=== PATIENT | male | born 1950 | race African-American/Black ===

== ENCOUNTER 2017-08-02 16:51 | Inpatient (IN) | payer OTHER ==
[~2017-08-02] VITALS: Ht 182.9 cm; Wt 130.9 kg
[2017-08-02 16:51] VITALS: BP 137/70
[~2017-08-02 16:51] MED LIST: AMBIEN 5 MG TABL5 M1 PO; CALCITRIOL0.5 MCG PO; CLOBETASOL PROP50 G1 TP; CLONIDINE HCL0.2 M2 PO; GLIPIZIDE ER10 MG PO; KLOR-CON 1010 MEQ PO; LIPITOR40 MG PO; METOLAZONE 5 MG5 M1 PO; TAMSULOSIN HCL0.4 M1 PO; UREA TP; ZETIA10 MG PO
[2017-08-02 17:43] LABS: HEMATOCRIT 28.8 % (42.0-52.0); HEMOGLOBIN 8.8 gm/dL (14.0-18.0); MCH 26.5 pg (26.0-34.0); MCHC 30.6 g/dL (28.0-37.0); MCV 86.8 fL (80.0-100.0); PLATELET COUNT 251 thou/uL (150-400); RBC 3.31 mil/uL (4.50-6.00); RDW 19.4 % (10.5-14.5); WBC 10.1 thou/uL (4.0-11.0)
[2017-08-02 17:44] LABS: MANUAL DIFF YES
[2017-08-02 18:46] LABS: ABSOLUTE NEUTROPHILS 9.1 thou/uL (1.4-8.2); TOTAL CELL COUNT 100
[2017-08-02 18:47] LABS: ANISOCYTOSIS 2+; OVALOCYTES 1+
[2017-08-02 18:48] LABS: POLYCHROMASIA OCCASIONAL
[2017-08-02 18:54] LABS: URINE BILIRUBIN NEGATIVE (Negative); URINE BLOOD NEGATIVE (Negative); URINE COLOR YELLOW; URINE GLUCOSE-RANDOM* NEGATIVE (Negative); URINE KETONES NEGATIVE (Negative); URINE PROTEIN (DIPSTICK) TRACE (Negative); URINE UROBILINOGEN 0.2 E.U./dl (0.2-1.0)
[2017-08-02 18:58] LABS: URINE LEUKOCYTES-REFLEX TRACE (Negative)
[2017-08-02 19:03] LABS: CASTS None Seen /LPF (None Seen); CRYSTALS None Seen /LPF (None Seen); SQUAMOUS 0-3 Few /LPF (0-3)
[2017-08-02 19:04] LABS: URINE RBC None Seen /HPF (0-2); URINE WBC-REFLEX 0-5 Rare /HPF (0-5)
[2017-08-02] MEDS ORDERED: SENNA PO (19:44)
[2017-08-02] MEDS ORDERED: LOPERAMIDE 2 MG2 M1 PO (19:48)
[2017-08-02] MEDS ORDERED: CALMOSEPTINE O3.5 GM (19:49)
[2017-08-02] MEDS ORDERED: NORCO 10-325 T1 EACH PO (19:49)
[2017-08-02] MEDS ORDERED: VITAMINC500 PO (19:50)
[2017-08-02] MEDS ORDERED: ASPIR 8181 M1 PO (19:50)
[2017-08-02 20:51] LABS: ALBUMIN 2.8 g/dL (3.4-5.0); DIRECT BILIRUBIN 0.1 mg/dL (<0.1-0.3); TOTAL BILIRUBIN 0.4 mg/dL (<0.1-1.0); TOTAL PROTEIN 7.4 g/dL (6.4-8.2)
[2017-08-02 20:54] LABS: CALCIUM 8.6 mg/dL (8.5-10.1); CREATININE 1.8 mg/dL (0.7-1.3); POTASSIUM 3.6 mmol/L (3.5-5.1)
[2017-08-02 20:55] VITALS: BP 136/60
[2017-08-02 21:57] VITALS: BP 114/61
[2017-08-02] MEDS ORDERED: POTASSIUM20 PO (23:59)
[2017-08-03] MEDS ORDERED: CYMBALTA60 MG PO (00:02)
[2017-08-03] MEDS ORDERED: LASIX 40 MG TAB40 M2 PO (00:03)
[2017-08-03] MEDS ORDERED: GABAPENTIN 100100 MG PO (00:05)
[2017-08-03] MEDS ORDERED: HYDRALAZINE 5050 MG PO (00:06)
[2017-08-03] MEDS ORDERED: CLARITIN10 M2 PO (00:08)
[2017-08-03] MEDS ORDERED: LOVASTAT40 PO (00:09)
[2017-08-03] MEDS ORDERED: METFORMIN HCL500 MG PO (00:11)
[2017-08-03] MEDS ORDERED: LOPRESSOR50 PO (00:13)
[2017-08-03] MEDS ORDERED: ZANTAC 150MG T150 MG PO (00:15)
[2017-08-03] MEDS ORDERED: LEVSIN0.125 MG PO (00:16)
[2017-08-03] MEDS ORDERED: AMBIEN 5 MG TABL5 M1 PO (00:17)
[2017-08-03] MEDS ORDERED: LANTUS100 UNIT/M SUBQ (00:18)
[2017-08-03] MEDS ORDERED: IRON325 PO (00:19)
[2017-08-03] MEDS ORDERED: AQUAPHOR OINTM396 GM TOP (00:21)
[2017-08-03] MEDS ORDERED: PAXIL10 MG TOP (00:24)
[2017-08-03] MEDS ORDERED: AQUAPHOR HEALIN50 GM TOP (01:27)
[2017-08-03 04:21] VITALS: BP 162/70
[2017-08-03 07:42] VITALS: BP 158/75
[2017-08-03 11:29] VITALS: BP 118/55
[2017-08-03 16:18] VITALS: BP 128/59
[2017-08-03 19:34] VITALS: BP 134/63
[2017-08-04 04:00] VITALS: BP 149/94
[2017-08-04 05:42] LABS: HEMOGLOBIN 7.9 gm/dL (14.0-18.0); MCH 26.3 pg (26.0-34.0); MCHC 31.5 g/dL (28.0-37.0); MCV 83.7 fL (80.0-100.0); PLATELET COUNT 195 thou/uL (150-400); RBC 2.99 mil/uL (4.50-6.00); RDW 18.8 % (10.5-14.5); WBC 13.6 thou/uL (4.0-11.0)
[2017-08-04 05:52] LABS: MANUAL DIFF YES
[2017-08-04 08:50] VITALS: BP 163/75
[2017-08-04 08:51] LABS: ABSOLUTE NEUTROPHILS 11.8 thou/uL (1.4-8.2); ANISOCYTOSIS 2+; OVALOCYTES 2+; TOTAL CELL COUNT 100
[2017-08-04 13:45] VITALS: BP 157/63
[2017-08-04 14:09] LABS: KAPPA FREE LIGHT CHAINS 32.5 mg/L (3.3-19.4); KAPPA/LAMBDA RATIO 0.1 (0.26-1.65)
[2017-08-04 17:10] VITALS: BP 142/58
[2017-08-04 19:05] VITALS: BP 133/45
[2017-08-05 04:15] VITALS: BP 121/61
[2017-08-05 08:08] VITALS: BP 148/69
[2017-08-05] MEDS ORDERED: HYDROCODON-ACE1 EAC7 PO (10:16)
[2017-08-05] MEDS ORDERED: CEFUROXIME500 MG PO (10:20)
[2017-08-05 11:25] VITALS: BP 115/53
[2017-08-05 15:08] LABS: A/G RATIO 0.8 (0.7-1.7); ALBUMIN 2.8 g/dL (2.9-4.4); ALPHA 1 0.3 g/dL (0.0-0.4); ALPHA 2 0.8 g/dL (0.4-1.0); BETA 0.8 g/dL (0.7-1.3); GAMMA 1.7 g/dL (0.4-1.8); M-SPIKE 0.9 g/dL (Not Observed)
[2017-08-05 16:09] LABS: IgA 64 mg/dL (61-437); IgG 1830 mg/dL (700-1600)
[2017-08-05 20:08] LABS: IgM 15 mg/dL (20-172)
[2017-08-05 22:07] LABS: HIV ANTIBODY Non Reactive (Non Reactive)
== END 2017-08-05 17:10 | DRG 871 ==
LOC: ER 16:51 → 4W 19:50 → EROBS 19:50 → 4W 21:18
PROVIDERS: Emergency Medicine; Hospitalist; Internal Medicine Hematology & Oncology
DX: A40.8 Other streptococcal sepsis (principal); G93.40 Encephalopathy, unspecified; J18.9 Pneumonia, unspecified organism; N39.0 Urinary tract infection, site not specified; C90.00 Multiple myeloma not having achieved remission; C46.9 Kaposi's sarcoma, unspecified; E78.5 Hyperlipidemia, unspecified; H35.30 Unspecified macular degeneration; M10.9 Gout, unspecified; Z66 Do not resuscitate; N18.3 Chronic kidney disease, stage 3 (moderate); E11.22 Type 2 diabetes mellitus with diabetic chronic kidney disease; I12.9 Hypertensive chronic kidney disease with stage 1 through stage 4 chronic kidney disease, or unspecified chronic kidney disease; K21.9 Gastro-esophageal reflux disease without esophagitis; D64.9 Anemia, unspecified; I89.0 Lymphedema, not elsewhere classified; F32.9 Major depressive disorder, single episode, unspecified; N40.0 Benign prostatic hyperplasia without lower urinary tract symptoms; N13.9 Obstructive and reflux uropathy, unspecified; Z85.46 Personal history of malignant neoplasm of prostate; Z90.49 Acquired absence of other specified parts of digestive tract; Z88.8 Allergy status to other drugs, medicaments and biological substances
CPT/HCPCS: 10045

== ENCOUNTER 2017-08-08 13:03 | Emergency (ER) | payer OTHER ==
[~2017-08-08] VITALS: Ht 180.3 cm; Wt 136.1 kg
--- NOTE | ~2017-08-08 | EKG ---
[address] [address] ELECTROCARDIOGRAM REPORT Name: MERCEDEZ URBINA Room #: DEP [facility] [id number] Admission: 08/08/17 Attend Phys: Discharge: 08/08/17 Date of : 48 Report #: [id number] THIS REPORT FOR: //name// [facility] ED Test Date: 2017-08-08 Test Time: 16:58:34 Pat Name: MERCEDEZ URBINA Department: Room: Gender: Online Marketing Specialist: JOE : 1950 Requested By: Demi Degroot Order Number: [id number] MD: Trung Ballard Measurements Intervals [place] Rate: 83 P: 52 TN: 145 QRS: 72 QRSD: 92 T: 57 QT: 369 QTc: 434 Interpretive Statements Sinus arrhythmia No significant abnormality Compared to ECG 06/13/2013 11:12:35 No significant change was found Electronically Signed On 08-09-2017 8:18:43 CDT by Trung Ballard [email or web address] <ELECTRONICALLY SIGNED> By: Trung Ballard MD, [facility] 08/09/17 0818 1658 1658 Trung Ballard MD, FACC /EPI
[~2017-08-08 13:03] MED LIST changes: +AQUAPHOR HEALIN50 GM TOP; +AQUAPHOR OINTM396 GM TOP; +ASPIR 8181 M1 PO; +CALMOSEPTINE O3.5 GM; +CEFUROXIME500 MG PO; +CLARITIN10 M2 PO; +CYMBALTA60 MG PO; +GABAPENTIN 100100 MG PO; +HYDRALAZINE 5050 MG PO; +HYDROCODON-ACE1 EAC7 PO; +IRON325 PO; +LANTUS100 UNIT/M SUBQ; +LASIX 40 MG TAB40 M2 PO; +LEVSIN0.125 MG PO; +LOPERAMIDE 2 MG2 M1 PO; +LOPRESSOR50 PO; +LOVASTAT40 PO; +METFORMIN HCL500 MG PO; +NORCO 10-325 T1 EACH PO; +PAXIL10 MG TOP; +POTASSIUM20 PO; +SENNA PO; +VITAMINC500 PO; +ZANTAC 150MG T150 MG PO
[2017-08-08 13:46] LABS: URINE BILIRUBIN NEGATIVE (Negative); URINE BLOOD NEGATIVE (Negative); URINE COLOR YELLOW; URINE GLUCOSE-RANDOM* NEGATIVE (Negative); URINE KETONES NEGATIVE (Negative); URINE NITRITE NEGATIVE (Negative); URINE PROTEIN (DIPSTICK) TRACE (Negative); URINE SPECIFIC GRAVITY 1.015 (1.003-1.035); URINE UROBILINOGEN 0.2 E.U./dl (0.2-1.0)
[2017-08-08 13:51] LABS: HEMATOCRIT 22.1 % (42.0-52.0); HEMOGLOBIN 7.1 gm/dL (14.0-18.0); MCHC 32.3 g/dL (28.0-37.0); MCV 80.7 fL (80.0-100.0); PLATELET COUNT 210 thou/uL (150-400); RBC 2.74 mil/uL (4.50-6.00); RDW 19.1 % (10.5-14.5)
[2017-08-08 13:53] LABS: MANUAL DIFF YES
[2017-08-08 13:59] LABS: CALCIUM 9.3 mg/dL (8.5-10.1); CREATININE 1.8 mg/dL (0.7-1.3); POTASSIUM 3.9 mmol/L (3.5-5.1)
[2017-08-08 14:03] LABS: ALBUMIN 2.2 g/dL (3.4-5.0); TOTAL BILIRUBIN 0.4 mg/dL (<0.1-1.0); TOTAL PROTEIN 7.7 g/dL (6.4-8.2)
[2017-08-08 14:15] LABS: ANISOCYTOSIS 2+; TOTAL CELL COUNT 100
[2017-08-08 14:16] LABS: ABSOLUTE NEUTROPHILS 5.8 thou/uL (1.4-8.2)
[2017-08-08] MEDS ORDERED: FLEXERIL PO (14:27)
== END 2017-08-08 19:05 | disposition short-term general hospital (02) ==
LOC: ER 13:03
PROVIDERS: Nurse Practitioner Family
DX: L03.116 Cellulitis of left lower limb (principal); R41.82 Altered mental status, unspecified; I89.0 Lymphedema, not elsewhere classified; I12.9 Hypertensive chronic kidney disease with stage 1 through stage 4 chronic kidney disease, or unspecified chronic kidney disease; E11.22 Type 2 diabetes mellitus with diabetic chronic kidney disease; N18.9 Chronic kidney disease, unspecified; M10.9 Gout, unspecified; E78.5 Hyperlipidemia, unspecified; H35.30 Unspecified macular degeneration; F32.9 Major depressive disorder, single episode, unspecified; Z79.4 Long term (current) use of insulin; Z88.8 Allergy status to other drugs, medicaments and biological substances